=== PATIENT | male | born 1950 | race Caucasian/White ===

== ENCOUNTER 2020-08-23 18:41 | Emergency (ER) | payer OTHER, SELFPAY ==
[2020-08-23 19:30] VITALS: BP 130/66; PULSE 61; RESP 18; TEMP 36.4; O2SAT 97
--- NOTE | 2020-08-23 20:55 | ED.GENADULT ---
HPI - General Adult General Chief complaint: Urogenital-Male Stated complaint: siegel clogged Time Seen by Provider: 08/23/20 20:48 Source: RN notes reviewed History of Present Illness HPI narrative: Patient presents emergency department from home for Siegel catheter malfunction. Patient states he had Siegel catheter placed yesterday after he had a UroLift performed by Dr. Frost. He states he is in the office today as he was having some blood in the Siegel and was irrigated by Dr. Frost and has been doing well since that time until this evening when he became clotted again. Patient states he had no drainage for approximately an hour and a half until he is walking around the waiting room with a clot was dislodged into his bag and then he had drainage following that he denies having fevers or chills abdominal pain nausea vomiting or any other symptoms he states that he is currently on Bactrim Related Data Allergies Allergy/AdvReac Type Severity Reaction Status Date / Time No Known Allergies Allergy Unknown Unverified 08/23/20 19:40 Review of Systems Review of Systems: Narrative: Gen.: Denies fevers or chills Respiratory: Denies shortness of breath or cough CV: Denies chest pain or palpitations GI: Denies abdominal pain nausea, emesis or diarrhea HPI Musculoskeletal: Denies back pain or muscle pain Neuro: Denies numbness, tingling, weakness or focal weakness Skin: Denies rash Except as documented, all other systems reviewed and negative [facility] Past Medical History Medical History (Updated 08/23/20 @ 22:12 by Hiram Dukes DO) Hyperlipidemia Social History Social History Smoking status: Never smoker Gender identity (if verbalized by the patient): Male Exam Narrative: Exam Narrative: APPEARANCE: No acute distress, nontoxic, resting in bed EYES: EOMI HEENT: Normocephalic, atraumatic, OMM RESPIRATORY: No respiratory distress ABDOMINAL: Soft, nontender, nondistended, no rebound or guarding : Siegel catheter in place draining reddish urine MUSCULOSKELETAl: Moves all extremities. No clubbing, cyanosis or edema. NEURO: Awake and alert. Following commands, speech normal, no focal deficits SKIN:: Warm, dry. No rashes lesions or abrasions PSYCHIATRIC: Normal affect/mood, Course Course Emergency Course: Discussed with Dr. Quinn presentation work-up recommends patient have a 22 Korean Siegel placed and irrigated and drainage patient may be discharged follow with Dr. Frost 22 Korean Siegel placed in the ED so her clots were irrigated and draining clear urine since that time will discharge at this time Discussed with patient results of workup and diagnosis. Discussed need for follow-up with primary care, proper use of medication, and reasons to return to the emergency department. Patient understands and agrees to current treatment plan Vital Signs Vital signs: Vital Signs Temperature 97.5 F L 08/23/20 19:30 Pulse Rate 61 08/23/20 19:30 Respiratory Rate 18 08/23/20 19:30 Blood Pressure 130/66 08/23/20 19:30 Pulse Oximetry 97 08/23/20 19:30 Temperature 97.5 F L 08/23/20 19:30 Pulse Rate 61 08/23/20 19:30 Respiratory Rate 18 08/23/20 19:30 Blood Pressure 130/66 08/23/20 19:30 Pulse Oximetry 97 08/23/20 19:30 Medical Decision Making Vital Signs Vital Signs: Vital Signs Temperature 97.5 F L 08/23/20 19:30 Pulse Rate 61 08/23/20 19:30 Respiratory Rate 18 08/23/20 19:30 Blood Pressure 130/66 08/23/20 19:30 Pulse Oximetry 97 08/23/20 19:30 Temperature 97.5 F L 08/23/20 19:30 Pulse Rate 61 08/23/20 19:30 Respiratory Rate 18 08/23/20 19:30 Blood Pressure 130/66 08/23/20 19:30 Pulse Oximetry 97 08/23/20 19:30 Lab Data Labs: Urine Characteristics Clots Discharge Plan Discharge Clinical Impression: Malfunction of Siegel
[2020-08-23] MEDS: LIDOCAINE HCL 2% GEL UROJET 10 ML PKG (21:57)
[2020-08-23 22:44] VITALS: BP 128/78; PULSE 68; RESP 15; O2SAT 99
== END 2020-08-23 22:45 | disposition home or self-care (01) ==
PROVIDERS: Emergency Provider Emergency Medicine
DX: T83.011A Breakdown (mechanical) of indwelling urethral catheter, initial encounter (principal); R31.9 Hematuria, unspecified
CPT/HCPCS: 99283

== ENCOUNTER 2020-08-24 10:33 | Emergency (ER) | payer OTHER, SELFPAY ==
--- NOTE | ~2020-08-24 | US_ITS ---
EXAMINATION: US pelvic limited DATE: 08/24/2020 13:37 INDICATION: Hematuria. TECHNIQUE: Multiple grayscale and Doppler ultrasound images of the pelvis were obtained. COMPARISON: None FINDINGS: There is a Ballester[place] catheter in expected position. The prostate is moderately enlarged. There is a small volume of hyperechoic material in the bladder, consistent with hematoma. IMPRESSION: 1. Small volume of hematoma in the bladder. 2. Moderately enlarged prostate. Reviewed, dictated and finalized at location B. [facility]
[2020-08-24 10:35] VITALS: BP 118/67; PULSE 69; RESP 16; TEMP 36.5; O2SAT 98
[2020-08-24 11:49] LABS: Add Urine Microscopic? YES; Appearance Urine Cloudy (Clear); Bilirubin Urine Negative (Negative); Blood Urine 3+ (Negative); Color Urine Red (Yellow); Glucose Urine UA Negative (Negative); Ketones Urine Trace mg/dL (Negative); Leukocyte Esterase Ur Negative LEU/UL (Negative); Mucus Urine Few /lpf; Nitrate Urine Negative (Negative); Protein Urine 2+ mg/dL (Negative); RBC Urine >75 /hpf (0-2); Specific Grav Ur 1.012 (1.001-1.035); Urobilinogen Urine Negative mg/dL (<2.0); WBC Urine 51-75 /hpf
--- NOTE | 2020-08-24 12:24 | ED.GENADULT ---
HPI - General Adult General Chief complaint: Urogenital-Male Stated complaint: MONTGOMERY CATH CLOGGED Time Seen by Provider: 08/24/20 11:16 Source: patient and old records reviewed Mode of arrival: ambulatory Limitations: no limitations History of Present Illness HPI narrative: Patient is a 69-year-old male who presents with clogged Montgomery catheter had UroLift and Montgomery catheter placed Saturday was seen by urology after developing a clot in the catheter which was resolved came yesterday to the emergency department had similar presentation was able to pass urine after the catheter was cleared again had recurrence this morning on arrival patient notes that it has began to drain again but is noticing clots in the Montgomery catheter bag patient denies anticoagulant use. Patient denies pain fever chills nausea vomiting Related Data Home Medications Medication Instructions Recorded Confirmed atorvastatin HS 08/24/20 finasteride mg HS 08/24/20 sulfamethoxazole-trimethoprim tablet TID 08/24/20 tamsulosin mg PO HS 08/24/20 tramadol mg PRN 08/24/20 Allergies Allergy/AdvReac Type Severity Reaction Status Date / Time No Known Allergies Allergy Unknown Verified 08/24/20 11:26 Review of Systems Review of Systems: All systems reviewed & are unremarkable except as noted in HPI and below PMFSH Past Medical History Medical History Hyperlipidemia Social History Social History Smoking status: Never smoker Gender identity (if verbalized by the patient): Male Exam Narrative: Exam Narrative: GENERAL: Well-appearing, well-nourished, and in no acute distress. HEAD: Normocephalic, atraumatic. EYES: PERRLA and EOMI. ENT: Nares clear, no rhinorrhea or epistaxis. Mucous membranes moist. O CHEST: Clear to auscultation. No respiratory distress. No wheezes rales or rhonchi HEART: Regular rate and rhythm. No murmur heard. Normal peripheral pulses. ABDOMEN: Soft, nontender, nondistended, dark urine with some clots in the bag EXTREMITIES: Normal range of motion. No edema. SKIN: Warm, dry, no rash. NEURO: No focal deficits. Alert and oriented x3. PSYCH: Normal mood and affect. Course Consultations Consultation #1: Discussed case with urologist Dr. Frost who would like the bladder to be filled with 200 of saline the Montgomery catheter removed at that point to see if the patient can urinate without Montgomery catheter if the patient is still unable to do so would like three-way catheter with irrigation to be initiated Date: 08/24/20 Time: 12:33 Vital Signs Vital signs: Vital Signs Temperature 97.7 F 08/24/20 10:35 Pulse Rate 69 08/24/20 10:35 Respiratory Rate 16 08/24/20 10:35 Blood Pressure 118/67 08/24/20 10:35 Pulse Oximetry 98 08/24/20 10:35 Temperature 97.7 F 08/24/20 10:35 Pulse Rate 59 L 08/24/20 14:53 Respiratory Rate 16 08/24/20 14:53 Blood Pressure 109/67 08/24/20 14:53 Pulse Oximetry 100 08/24/20 14:53 Medical Decision Making MDM Narrative Medical decision making narrative: Patient in the room at this time aware of case findings treatment plan and diagnosis agreeing to be sent home after he was able to have the Montgomery catheter removed and was able to urinate patient. Patient feels comfortable to go home is in no pain afebrile nontoxic-appearing no distress will follow with his urologist Vital Signs Vital Signs: Vital Signs Temperature 97.7 F 08/24/20 10:35 Pulse Rate 69 08/24/20 10:35 Respiratory Rate 16 08/24/20 10:35 Blood Pressure 118/67 08/24/20 10:35 Pulse Oximetry 98 08/24/20 10:35 Temperature 97.7 F 08/24/20 10:35 Pulse Rate 59 L 08/24/20 14:53 Respiratory Rate 16 08/24/20 14:53 Blood Pressure 109/67 08/24/20 14:53 Pulse Oximetry 100 08/24/20 14:53 Lab Data Result diagrams: 08/24/20 14:24 08/24/20 14:24
--- NOTE | 2020-08-24 13:27 | PC.NURSE ---
300 cc sterile fluid instilled in bladder per md request. siegel clamped and pt sent for ultrasound. will remove siegel per orders when pt returns from ultrasound.
[2020-08-24] MEDS: SODIUM CHLORIDE 0.9% IV 1,000 ML 999 ML IV CONT (14:23)
[2020-08-24 14:36] LABS: Basophils Absolute Auto 0.1 K/mm3 (0.0-0.1); Basophils Percent Auto 0.8 % (0.2-1.2); Eosinophils Percent Auto 0.5 % (0-4.4); Hematocrit 43.6 % (42.0-52.0); Hemoglobin 15.3 g/dL (14.0-18.0); Immature Granulocyte Absolute 0.03 K/mm3 (0.00-0.031); Immature Granulocyte Percent A 0.4 % (0-0.5); Lymphocytes Percent Auto 10.8 % (18.3-44.2); Mean Corpuscular HGB Conc 35.1 g/dl (32-36); Mean Corpuscular Hemoglobin 31.4 pg (26-34); Mean Corpuscular Volume 89.3 fl (80-100); Mean Platelet Volume 9.8 fl (7.4-10.4); Monocytes Absolute Auto 0.6 K/mm3 (0.1-0.6); Monocytes Percent Auto 7.6 % (2.6-8.5); Neutrophils Absolute Auto 6.6 K/mm3 (1.3-6.7); Neutrophils Percent Auto 79.9 % (45.5-73.1); Platelet Count Result 209 k/mm3 (150-375); Red Blood Count 4.88 M/mm3 (4.6-6.20); Red Cell Distribution Width 11.9 % (11.5-14.5); White Blood Count 8.3 K/mm3 (4.5-10.0)
[2020-08-24 14:50] LABS: INR 0.9; Prothrombin Time 12.9 Seconds (11.1-14.7)
[2020-08-24 14:51] LABS: Partial Thromboplastin Time 26.6 SECONDS (22.3-36.8)
[2020-08-24 14:52] LABS: Alanine Aminotransferase 18 U/L (4-50); Albumin Level 4.6 g/dL (3.5-5.1); Alkaline Phosphatase 99 U/L (38-126); Anion Gap 8 mmol/L (8-16); Aspartate Amino Transferase 22 U/L (17-59); Bilirubin,Total 3.1 mg/dL (0.2-1.3); Blood Urea Nitrogen 15 mg/dL (9-20); Calcium 9.2 mg/dL (8.4-10.2); Carbon Dioxide 28 mmol/L (22-30); Chloride 102 mmol/L (98-107); Estimated CRCL calculation 61 ml/min; Estimated Glomerular Filt Rate 60; Glucose 110 mg/dL (75-110); Potassium 4.7 mmol/L (3.4-5.0); Sodium 138 mmol/L (137-145)
[2020-08-24] MEDS: SODIUM CHLORIDE 0.9% IV 500 ML 999 ML IV CONT (14:52)
[2020-08-24 14:53] VITALS: BP 109/67; PULSE 59; RESP 16; O2SAT 100
--- NOTE | 2020-08-24 16:31 | PC.NURSE ---
voided second time post cath removal. 150 cc pink tinged urine without clots. less juan/red color compared to first void
[2020-08-24 17:21] VITALS: BP 123/69; PULSE 59; RESP 16; O2SAT 98
--- NOTE | 2020-08-24 17:21 | PC.NURSE ---
now voiding yellow urine without difficulty
== END 2020-08-24 17:26 | disposition home or self-care (01) ==
PROVIDERS: Emergency Medicine Emergency Medical Services; Emergency Provider Emergency Medicine
DX: T83.091A Other mechanical complication of indwelling urethral catheter, initial encounter (principal); N39.0 Urinary tract infection, site not specified; R33.9 Retention of urine, unspecified; E78.5 Hyperlipidemia, unspecified
CPT/HCPCS: 36415; 76857; 80053; 81001; 85025; 85610; 85730; 87086; 96361; 96365; 99284; J0696; J7030; J7040

== ENCOUNTER 2021-09-25 18:22 | Emergency (ER) | payer OTHER, SELFPAY ==
[2021-09-25 18:29] VITALS: BP 149/78; PULSE 67; RESP 18; TEMP 35.3; O2SAT 96
--- NOTE | 2021-09-25 19:30 | PC.NURSE ---
Pt exits ED without being seen by provider. No sign of distress of any kind. Advised to be seen for complaint.
== END 2021-09-26 02:02 | disposition left against medical advice (07) ==
DX: S91.312A Laceration without foreign body, left foot, initial encounter (principal)
CPT/HCPCS: 99199